=== PATIENT | male | born 1970 | race Caucasian/White ===

== ENCOUNTER → 2019-07-20 14:10 | Outpatient (BNVA) | payer MEDICARE, MEDICAID, SELFPAY | PROVIDERS: PCP Nurse Practitioner Family; Visit Provider Specialist | DX: G93.9 Disorder of brain, unspecified (principal); F17.210 Nicotine dependence, cigarettes, uncomplicated | CPT/HCPCS: 99204 ==

== ENCOUNTER 2019-08-02 07:21 | Outpatient (CLI) | payer MEDICARE, MEDICAID, SELFPAY ==
--- NOTE | 2019-08-02 08:00 | MR_ITS ---
WS: [id number] MRI HEAD WITH CONTRAST TECHNIQUE: Sagittal T1, T2 axial, T2 axial FLAIR, axial susceptibility weighted imaging, axial diffus ion weighted images, and coronal T2 images were obtained. Pre and post-T1 axial and post T1 coronal i mages. ADC and FSPGR images. CLINICAL INFORMATION: H/o multiple sclerosis COMPARISON: None. FINDINGS: No evidence of restricted diffusion to suggest acute ischemia. Ventricular system and basal cisterns are patent. Mild to moderate supratentorial white matter changes consistent with history of demyelina ting disease. No significant atrophy involving the corpus callosum. Mild parenchymal volume loss. No significant T1 hypointense lesion load. No abnormal gadolinium enhancement. No enhancing demyelinatin g lesions to indicate active disease. No abnormal gadolinium enhancement. Normal visualized dural venous sinuses. Small 3.3 mm hypoenhancing lesion in the posterior pituitary likely represents pars intermedia cyst v ersus less likely a small pituitary microadenoma. Recommend correlation with pituitary function studi es. No other abnormalities. MR/MR head wo/w con [id number] IMPRESSION: 1. No evidence of restricted diffusion to suggest acute ischemia. 2. Mild supratentorial white matter changes consistent with history of demyeli nating disease. 3. No enhancing lesions to indicate active disease. 4. Mild parenchymal volume loss. No significant T1 hypointense lesion load. 5. No significant callosal atrophy. 6. Small nonenhancing lesion in the dorsal pituitary measuring 3.3 mm likely r epresents incidental pars intermedia cyst versus small microadenoma.Correlation with pituitary function studies. 7. No other abnormalities.
== END 2019-08-02 07:22 | disposition home or self-care (01) ==
LOC: RADSHAW 07:28
PROVIDERS: PCP Nurse Practitioner Family; Visit Provider Specialist
DX: G35 Multiple sclerosis (principal); G93.89 Other specified disorders of brain
CPT/HCPCS: 70553; A9579

== ENCOUNTER → 2020-01-19 13:20 | Outpatient (BNVA) | payer MEDICARE, MEDICAID, SELFPAY | PROVIDERS: PCP Nurse Practitioner Family; Visit Provider Specialist | DX: G35 Multiple sclerosis (principal); R51.9 Headache, unspecified; G93.9 Disorder of brain, unspecified; E23.7 Disorder of pituitary gland, unspecified; F17.210 Nicotine dependence, cigarettes, uncomplicated; E88.9 Metabolic disorder, unspecified | CPT/HCPCS: 99214 ==

== ENCOUNTER 2020-03-09 12:35 | Outpatient (CLI) | payer MEDICARE, MEDICAID, SELFPAY ==
--- NOTE | 2020-03-09 13:00 | MR_ITS ---
WS: [id number] MRI BRAIN WITHOUT CONTRAST HISTORY: G35 - Multiple sclerosis COMPARISON: 08/02/2019 TECHNIQUE: Diffusion imaging, multiplanar T1, T2 and FLAIR imaging obtained. No evidence for acute infarct or hemorrhage. Fleming-white matter differentiation is normal. The pericallosal demyelinating lesions described on the prior study have not increased on this unenha nced study. The T2 and FLAIR signal hyperintensities above the corpus callosum greatest involving the splenium. No progression. No decreased signal within the white matter lesions. Ventricles and extra-axial spaces are normal. No inferior displacement of cerebellar tonsils. The sella turcica and pituitary gland are unremarkabl e. Small microadenoma described on the prior study is not evident without contrast. Posterior fossa is also unremarkable. Dural venous sinuses and [place] of [place] demonstrate no abnormality on this unenhanced studies. Paranasal sinuses: Clear. Mastoid air cells: Normal. Calvarium and scalp: Intact. MR/MR head wo con* [id number] IMPRESSION: 1. No evidence for an acute infarct. 2. Demyelinating lesions described on the prior MRI of the brain from 0 have not progressed on this unenhanced study.
== END 2020-03-09 12:36 | disposition home or self-care (01) ==
LOC: RADSHAW 12:43
PROVIDERS: PCP Nurse Practitioner Family; Visit Provider Specialist
DX: G35 Multiple sclerosis (principal)
CPT/HCPCS: 70551

== ENCOUNTER 2020-03-20 09:01 | Day surgery (SDC) | payer MEDICARE, MEDICAID, SELFPAY ==
[2020-03-16 12:21] VITALS: BMI 33.4
[2020-03-20 09:14] VITALS: BP 148/89; PULSE 85; RESP 16; TEMP 36.9; O2SAT 95
[2020-03-20] MEDS: sodium chloride 0.9% 1,000 ML 30 ML IV (09:33)
--- NOTE | 2020-03-20 09:38 | P.ANESASSM_ITS ---
Pre-Anesthetic Assessment Pre-Anesthetic Assessment: Height/Weight: Height 1.73 m Weight 99.79 kg Temp Pulse Resp BP Pulse Ox 98.4 F 85 16 148/89 95 03/20/20 09:14 03/20/20 09:14 03/20/20 09:14 03/20/20 09:14 03/20/20 09:14 Preop Diagnosis: polyps Proposed Procedure: Operation Date: 03/20/20 10:00 Proposed Procedures p Colonoscopy 86216 D09.9(Not Applicable) - Abad Robbins MD Familial anesthetic complications: hard to wake up Was Beta Krzysztof taken within 24 hours: N/A Last intake: Intake Last Liquid Date 03/19/20 Last Liquid Time 22:00 Last Solid Date 03/18/20 Last Solid Time 22:00 Social: Social History: Tobacco and No alcohol Exam: Pre-Anes Outpt Exam: alert, oriented x 3, clear to auscultation bi laterally and regular rate & rhythm Airway: Cervical ROM: WNL MP: 3 Dentition: Chipped (top front) Pulmonary: Pulmonary: COPD Metabolic: Metabolic: DM and Morbid obesity Neuropsych: Comments: multiple sclerosis Anesthetic Plan: ASA status: 3 Anesthesia: MAC Risk of > 500 ml blood loss (7ml/kg in children): No Meds/Allergies Current Medications: Current Medications Generic Name Dose Route Start Last Admin Trade Name Freq PRN Reason Stop Dose Admin Sodium Chloride 1,000 mls @ 30 ml s/hr 03/20/20 09:15 03/20/20 09:33 Sodium Chloride 0.9% IV 03/21/20 09:14 30 mls/hr .Q24H TINY Administration PFSH Anesthesia PFSH: Family History Other Cancer Diabetes Hypertension Denies family history of CAD (coronary artery disease) Stroke Social History Smoking and tobacco status: current every day smoker cigarettes Packs smoked per day: 0.25 Alcohol intake: current Alcohol intake frequency: holidays/special occasions only History of recent travel: No Data Anesthesia Cardiac Studies: No Data to Display
[2020-03-20 09:39] LABS: Glucose Point of Care 324 mg/dL (70-110)
[2020-03-20] MEDS: insulin regular-human 100 units/1 mL 10 UNIT IVP (09:48)
[2020-03-20 10:42] LABS: Glucose Point of Care 228 mg/dL (70-110)
[2020-03-20 10:43] VITALS: BP 121/71; PULSE 84; RESP 18; TEMP 36.7; O2SAT 96
--- NOTE | 2020-03-20 14:56 | ANE.PACU2 ---
Inpatient post-anesthesia follow up: Airway intact: Yes Vital signs: Temperature 98.0 F Pulse Rate 84 Respiratory Rate 18 Blood Pressure 121/71 Pulse Oximetry 96 Oxygen Delivery Me thod Room Air Oxygen Flow Rate Fraction of Inspir ed Oxygen Hydration adequate: Yes Nausea and vomiting: No Pain level: 1 Mental status: Baseline
--- NOTE | 2020-03-21 14:14 | W.PM.OPSUD ---
Surgery/Procedure H&P Update DATE OF PROCEDURE: March 21, 2020 DATE H&P PERFORMED: 03/08/20 PREOP DIAGNOSIS: polyps PLANNED PROCEDURE: Operation Date: 03/20/20 10:00 Proposed Procedures p Colonoscopy 11486 D09.9(Not Applicable) - Abad Robbins MD
== END 2020-03-20 11:10 | disposition home or self-care (01) ==
PROVIDERS: PCP Nurse Practitioner Family; Visit Provider Internal Medicine
PROC: 0DJD8ZZ Inspection of Lower Intestinal Tract, Via Natural or Artificial Opening Endoscopic (ICD-10-PCS; CPT 45330; principal; 2020-03-20 10:00)
DX: D09.9 Carcinoma in situ, unspecified (principal); J44.9 Chronic obstructive pulmonary disease, unspecified; E11.9 Type 2 diabetes mellitus without complications; Z79.4 Long term (current) use of insulin; E66.01 Morbid (severe) obesity due to excess calories; Z68.33 Body mass index [BMI] 33.0-33.9, adult; G35 Multiple sclerosis
CPT/HCPCS: 12345; 36416; 45330; 82962; 96374; J1815; J2704; J7030

== ENCOUNTER → 2020-07-24 15:05 | Outpatient (BNVA) | payer MEDICARE, MEDICAID, SELFPAY | PROVIDERS: PCP Nurse Practitioner Family; Visit Provider Specialist | DX: R51.9 Headache, unspecified (principal); G93.89 Other specified disorders of brain; E23.7 Disorder of pituitary gland, unspecified; F17.210 Nicotine dependence, cigarettes, uncomplicated | CPT/HCPCS: 99214 ==

== ENCOUNTER → 2020-10-25 13:38 | Outpatient (BNVA) | payer MEDICARE, MEDICAID, SELFPAY | PROVIDERS: PCP Nurse Practitioner Family; Visit Provider Specialist | DX: G93.9 Disorder of brain, unspecified (principal); R51.9 Headache, unspecified; M54.81 Occipital neuralgia; F17.210 Nicotine dependence, cigarettes, uncomplicated | CPT/HCPCS: 99214 ==

== ENCOUNTER → 2021-03-27 13:40 | Outpatient (BNVA) | payer MEDICARE, MEDICAID, SELFPAY | PROVIDERS: PCP Nurse Practitioner Family; Referring Provider Nurse Practitioner Family; Visit Provider Internal Medicine | DX: E13.40 Other specified diabetes mellitus with diabetic neuropathy, unspecified (principal); E23.7 Disorder of pituitary gland, unspecified; E16.0 Drug-induced hypoglycemia without coma; T38.3X5A Adverse effect of insulin and oral hypoglycemic [antidiabetic] drugs, initial encounter; E78.2 Mixed hyperlipidemia; F17.210 Nicotine dependence, cigarettes, uncomplicated; Z79.4 Long term (current) use of insulin; Z71.6 Tobacco abuse counseling | CPT/HCPCS: 83519; 83525; 86337; 99204 ==

== ENCOUNTER → 2021-04-10 09:55 | Outpatient (BNVA) | payer MEDICARE, MEDICAID, SELFPAY | PROVIDERS: PCP Nurse Practitioner Family; Visit Provider Internal Medicine | DX: E13.40 Other specified diabetes mellitus with diabetic neuropathy, unspecified (principal); E16.0 Drug-induced hypoglycemia without coma; T38.3X5A Adverse effect of insulin and oral hypoglycemic [antidiabetic] drugs, initial encounter; E78.2 Mixed hyperlipidemia; F17.210 Nicotine dependence, cigarettes, uncomplicated; Z79.4 Long term (current) use of insulin | CPT/HCPCS: 99214 ==

== ENCOUNTER → 2021-04-30 14:19 | Outpatient (BNVA) | payer MEDICARE, MEDICAID, SELFPAY | PROVIDERS: PCP Nurse Practitioner Family; Visit Provider Specialist | DX: M54.81 Occipital neuralgia (principal); G93.9 Disorder of brain, unspecified; G43.711 Chronic migraine without aura, intractable, with status migrainosus; F17.210 Nicotine dependence, cigarettes, uncomplicated | CPT/HCPCS: 64405; 99213; 99214; J1030; J3490 ==

== ENCOUNTER → 2023-05-15 13:41 | Outpatient (BNVA) | payer MEDICARE, SELFPAY | PROVIDERS: PCP Nurse Practitioner Family; Visit Provider Specialist | DX: M54.81 Occipital neuralgia; G24.3 Spasmodic torticollis | CPT/HCPCS: 99215 ==

== ENCOUNTER → 2023-12-26 15:39 | Outpatient (BNVA) | payer MEDICARE, SELFPAY | PROVIDERS: PCP Nurse Practitioner Family; Visit Provider Specialist | DX: M54.81 Occipital neuralgia (principal); G24.3 Spasmodic torticollis; G50.0 Trigeminal neuralgia | CPT/HCPCS: 99214 ==

== ENCOUNTER → 2024-06-24 10:11 | Outpatient (BNVA) | payer MEDICARE, SELFPAY | PROVIDERS: PCP Nurse Practitioner Family; Visit Provider Specialist | DX: M54.81 Occipital neuralgia (principal); G24.3 Spasmodic torticollis; G50.0 Trigeminal neuralgia | CPT/HCPCS: 99213 ==

== ENCOUNTER → 2024-11-23 11:59 | Outpatient (BNVA) | payer MEDICARE, MEDICAID, SELFPAY | PROVIDERS: PCP Nurse Practitioner Family; Visit Provider Specialist | DX: G43.711 Chronic migraine without aura, intractable, with status migrainosus (principal) | CPT/HCPCS: 99214 ==